=== PATIENT | female | born 1985 | race Caucasian/White ===

== ENCOUNTER 2017-09-14 08:16 | Emergency (ER) | payer SELFPAY ==
[~2017-09-14] VITALS: Ht 160 cm; Wt 75.0 kg
[2017-09-14 10:13] VITALS: BP 117/67
== END 2017-09-14 10:56 | disposition home or self-care (01) ==
LOC: ER 10:41
DX: J02.9 Acute pharyngitis, unspecified (principal)
CPT/HCPCS: 87070; 87430; 99284